=== PATIENT | male | born 1950 | race Caucasian/White ===

== ENCOUNTER 2024-09-08 14:46 | Day surgery (SDC) | payer MEDICARE ==
[~2024-09-08 14:46] MED LIST: EPINEPHrine 0.3 MG in Ophthalmic Irrigation Solution 500 ML IRR SCH
[2024-09-08] MEDS ORDERED: Cyclopentolate 1% Opth Drop 2 ML BOT ONE (15:23)
[2024-09-08] MEDS ORDERED: PHENYLephrine 2.5% Ophth Soln 15 ml Bottle ONE (15:23)
[2024-09-08] MEDS ORDERED: PROPOFOL 20 ML ONE (16:13)
[2024-09-08] MEDS ORDERED: fentaNYL 50 mcg/mL 1 mL Vial ONE (16:13)
[2024-09-08] MEDS ORDERED: Lidocaine 1% PF 5 ML VIAL ONE ×2 (16:15→18:25)
[2024-09-08] MEDS ORDERED: CEFAZOLIN 1 GM VIAL ONE (18:25)
[2024-09-08] MEDS ORDERED: Triamcinolone 40 MG/ML VIAL ONE (18:25)
[2024-09-08] MEDS ORDERED: Maxitrol 0.1% Opth Oint 3.5 GM TUBE ONE (18:25)
[2024-09-08] MEDS ORDERED: Lidocaine 4% PF 5 ML AMP ONE (18:25)
[2024-09-08] MEDS ORDERED: Bupivacaine 0.75% 10 ML VIAL ONE (18:25)
== END 2024-09-08 19:28 | disposition home or self-care (01) ==
LOC: SDC 14:46
PROVIDERS: ATTEND Ophthalmology Retina Specialist
PROC: 08T53ZZ Resection of Left Vitreous, Percutaneous Approach (ICD-10-PCS; principal; 2024-09-08)
PROC: 08NF3ZZ Release Left Retina, Percutaneous Approach (ICD-10-PCS; 2024-09-08)
DX: H33.42 Traction detachment of retina, left eye (principal)
CPT/HCPCS: 67025; 67041; J0171; J2704; J3010; J0690; J3301; J3490

== ENCOUNTER 2024-09-28 08:29 | Day surgery (SDC) | payer MEDICARE ==
[~2024-09-28 08:29] MED LIST changes: +Acetaminophen 500 MG TAB PO PRN; +Cyclopentolate 1% Opth Drop 2 ML BOT L EYE SCH; -EPINEPHrine 0.3 MG in Ophthalmic Irrigation Solution 500 ML IRR SCH; +Fluorouracil 100 MG, Enoxaparin 25 MG, EPINEPHrine 0.3 MG in Ophthalmic Irrigation Solu... IRR SCH; +Fluorouracil 100 MG, Enoxaparin 25 MG, EPINEPHrine 0.3 MG, Dextrose 50% 3 ML in Ophthal... IRR SCH; +Phenylephrine 2.5% Ophth Soln 5 ML BOT L EYE SCH
[2024-09-28] MEDS ORDERED: Cyclopentolate 1% Opth Drop 2 ML BOT ONE (10:16)
[2024-09-28] MEDS ORDERED: PHENYLephrine 2.5% Ophth Soln 15 ml Bottle ONE (10:16)
[2024-09-28] MEDS ORDERED: PROPOFOL 20 ML ONE (10:52)
[2024-09-28] MEDS ORDERED: fentaNYL 50 mcg/mL 1 mL Vial ONE (10:52)
[2024-09-28] MEDS ORDERED: ePHEDrine Sulfate 50 MG/10 ML VIAL ONE (11:31)
[2024-09-28] MEDS ORDERED: Ondansetron PF 4 MG/2 ML Vial ONE (13:07)
== END 2024-09-28 14:45 | disposition home or self-care (01) ==
LOC: SDC 08:29
PROVIDERS: ATTEND Ophthalmology Retina Specialist
PROC: 08T53ZZ Resection of Left Vitreous, Percutaneous Approach (ICD-10-PCS; principal; 2024-09-28)
PROC: 08NF3ZZ Release Left Retina, Percutaneous Approach (ICD-10-PCS; 2024-09-28)
DX: H33.42 Traction detachment of retina, left eye (principal)
CPT/HCPCS: 67113; C1814; J0171; J1650; J2405; J2704; J3010; J9190

== ENCOUNTER 2024-12-21 08:39 | Day surgery (SDC) | payer MEDICARE ==
[2024-12-19 15:49] VITALS: BMI 25.8
[~2024-12-21 08:39] MED LIST changes: -Acetaminophen 500 MG TAB PO PRN; -Cyclopentolate 1% Opth Drop 2 ML BOT L EYE SCH; -Fluorouracil 100 MG, Enoxaparin 25 MG, EPINEPHrine 0.3 MG, Dextrose 50% 3 ML in Ophthal... IRR SCH; -Phenylephrine 2.5% Ophth Soln 5 ML BOT L EYE SCH
[2024-12-21] MEDS ORDERED: fentaNYL PF 100 MCG/2 ML SYRINGE ONE (09:00)
[2024-12-21] MEDS ORDERED: Lidocaine 1% PF 5 ML VIAL ONE ×2 (09:00→09:40)
[2024-12-21] MEDS ORDERED: Midazolam HCl 2 mg/2 ml Vial ONE (09:00)
[2024-12-21] MEDS ORDERED: PROPOFOL 20 ML ONE (09:00)
[2024-12-21] MEDS ORDERED: Cyclopentolate 1% Opth Drop 2 ML BOT ONE (09:02)
[2024-12-21] MEDS ORDERED: PHENYLephrine 2.5% Ophth Soln 15 ml Bottle ONE (09:02)
[2024-12-21] MEDS ORDERED: EPINEPHrine 0.3 MG in Ophthalmic Irrigation Solution 500 ML IRR SCH (09:15)
[2024-12-21] MEDS ORDERED: Ondansetron PF 4 MG/2 ML Vial ONE (09:34)
[2024-12-21] MEDS ORDERED: Triamcinolone 40 MG/ML VIAL ONE (09:40)
[2024-12-21] MEDS ORDERED: Enoxaparin 30 MG (0.3 mL) SYRINGE ONE (09:40)
[2024-12-21] MEDS ORDERED: Lidocaine 4% PF 5 ML AMP ONE (09:40)
[2024-12-21] MEDS ORDERED: CEFAZOLIN 1 GM VIAL ONE (09:40)
[2024-12-21] MEDS ORDERED: Maxitrol 0.1% Opth Oint 3.5 GM TUBE ONE (09:40)
[2024-12-21] MEDS ORDERED: Bupivacaine 0.75% 10 ML VIAL ONE (09:40)
== END 2024-12-21 11:18 | disposition home or self-care (01) ==
LOC: SDC 08:39
PROVIDERS: ATTEND Ophthalmology Retina Specialist
PROC: 08T53ZZ Resection of Left Vitreous, Percutaneous Approach (ICD-10-PCS; principal; 2024-12-21)
DX: H43.392 Other vitreous opacities, left eye (principal); I10 Essential (primary) hypertension
CPT/HCPCS: 67036; J0171; J1650; J2250; J2405; J2704; J9190; J0690; J3301; J3490